=== PATIENT | male | born 1945 | race Caucasian/White ===

== ENCOUNTER 2019-11-29 07:40 | Inpatient (IN) | payer OTHER ==
[2019-11-15 13:31] LABS: URINE BILIRUBIN NEGATIVE (Negative); URINE BLOOD NEGATIVE (Negative); URINE CLARITY CLEAR; URINE COLOR YELLOW; URINE GLUCOSE-RANDOM* NEGATIVE (Negative); URINE KETONES NEGATIVE (Negative); URINE LEUKOCYTES-REFLEX NEGATIVE (Negative); URINE NITRITE-REFLEX NEGATIVE (Negative); URINE PROTEIN (DIPSTICK) NEGATIVE (Negative); URINE SPECIFIC GRAVITY 1.025 (1.005-1.035); URINE UROBILINOGEN 0.2 E.U./dl (0.2-1.0)
[2019-11-15 13:45] LABS: PROTIME 10.7 Seconds (9.3-11.4)
--- NOTE | 2019-11-15 13:51 | EKG ---
[address] [place] [address] ELECTROCARDIOGRAM REPORT Name: SHAHIDA MERCHANT Room #: [facility]#: [id number] Admission: Attend Phys: Everette Garcia MD Discharge: Date of : 49 Report #: [id number] THIS REPORT FOR: //name// [facility] Test Date: 2019-11-15 Test Time: 13:25:41 Pat Name: SHAHIDA MERCHANT Department: Room: Gender: It Senior Analyst: VALERIE WESTBROOK : 1945 Requested By: Everette Garcia Order Number: [id number] MD: Cirilo Jo Measurements Intervals [place] Rate: 68 P: [place]: QRS: -57 QRSD: 115 T: 125 QT: 409 QTc: 436 Interpretive Statements Afib/flut and V-paced complexes No further rhythm analysis attempted due to paced rhythm Incomplete left bundle branch block Anterior Q waves, possibly due to ILBBB No previous ECG available for comparison Electronically Signed On 11-15-2019 13:50:42 COUNSELOR MANAGER by Cirilo Jo [email or web address] <ELECTRONICALLY SIGNED> By: Cirilo Jo MD 11/15/19 1350 1325 1325 Cirilo Jo MD /EPI
[2019-11-15 13:54] LABS: ALBUMIN 3.4 g/dL (3.4-5.0); CALCIUM 9.2 mg/dL (8.5-10.1); CREATININE 1.6 mg/dL (0.7-1.3)
[2019-11-15 15:42] LABS: HEMATOCRIT 39.3 % (42.0-52.0); HEMOGLOBIN 12.5 gm/dL (14.0-18.0); MCH 29.8 pg (26.0-34.0); MCHC 31.9 g/dL (28.0-37.0); MCV 93.3 fL (80.0-100.0); RBC 4.21 mil/uL (4.50-6.00); RDW 16.2 % (10.5-14.5); WBC 9.3 thou/uL (4.0-11.0)
[2019-11-15 23:06] LABS: GLYCOHEMOGLOBIN (HGB A1C) 7.2 % (4.8-5.6)
[~2019-11-29] VITALS: Ht 172.7 cm; Wt 122.9 kg
[~2019-11-29 07:40] MED LIST: ALLOPURINOL 10100 M3 PO; ANTACID650 MG PO; ASPIR-LOW81 MG PO; CALCITRIOL0.25 MCG PO; COREG6.25 MG PO; DIVALPROEX SOD250 M3 PO; FERROUS GLUCON324 M2 PO; FOLIC ACID1 MG PO; KEFLEX500 M2 PO; LIPITOR20 MG PO; ORENCIA125 MG/1 M SUBQ; POTASSIUM20 PO; PROAIR HFA8.5 GM INH; RENAL MULTIVITAMIN PO; SERTRALINE HCL100 MG PO; TRAZODONE HCL100 MG PO; TYLENOL WITH CO1 TA1 PO; VITAMIN B-121000 MC2 PO; VITAMIN D3400 UNIT PO
[2019-11-29 11:40] VITALS: BP 172/77
[2019-11-29 15:40] VITALS: BP 150/91
--- NOTE | 2019-11-29 17:32 | NUR ---
ASSUMED CARE OF THE PT AT 1545. PT HAS CELESTE DRESSING, POLAR PACK AND MAGDI HOSE IN PLACE, SCD'S ON R LEG, L LEG HAS EDEMA AND POSSIBLE CELLULITIS. PT IS ON CONTACT PRECAUTIONS FOR HX OF MRSA. BS IN PACU WAS 220, BS BEFORE DINNER WAS 196, AWAITING DOCTOR TO FOLLOWUP ON PROTOCOL. L HAND IV INTACT. SX DRESSING INTACT WITH NO DRAINAGE. PAIN CONTROLLED BY PAIN MEDS, SEE EMAR. PEDAL PULSES ARE STRONG AND NEURO IS NUMBNESS IN FEET DUE TO BLOCK FROM SX, PT ABLE TO MOVE TOES AND CAP REFILL LESS THAN 3. PT IS A FALL RISK AND FALL PRECAUTIONS ARE IN PLACE, BED IN THE LOWEST POSITION AND CALL LIGHT IS WITHIN REACH. WILL CONTINUE TO MONITOR THE PT.
[2019-11-29 19:49] VITALS: BP 148/70
[2019-11-30 04:15] VITALS: BP 115/51
--- NOTE | 2019-11-30 04:50 | NUR ---
1910 ASSUMED CARE OF PT AFTER BEDSIDE REPORT, ASSESSMENT COMPLETED SEE ASSESSMENT. PHIL WRAP TO L KNEE WITH POLAR CARE IN PLACE, CLIENT WITH COMPLAINTS OF SLIGHT PAIN, SMALLER DRESSING WITH SEROUS DRAINAGE BELOW HPIL WRAP TO L KNEE. CLIENT WITH 3+ PITTING EDEMA AND REDNESS TO LLE, CLIENT STATES THIS IS NORMAL FOR HIM. CLIENT IS CHANGING POSITIONS ON HIS OWN AND IS COUGHING A DEEP BREATHING, VOIDING WITHOUT DIFFICULTY, IV INFUSING WITH NO S/S OF INFILTRATION OR PHLEBITIS. 2330 CONTACTED ONUR CINETECHNICIAN SECONDARY TO ELEVATED CBG AND D5 1/2NS ORDERED, ORDER CHANGET TO NS 1000ML X 1. CLIENT RESTING QUIETLY WITH NO COMPLAINTS OF PAIN OR DISCOMFORT.
[2019-11-30 07:13] LABS: ABSOLUTE NEUTROPHILS 7.7 thou/uL (1.4-8.2); BASOPHILS 0.3 % (0.0-2.0); HEMATOCRIT 36.9 % (42.0-52.0); HEMOGLOBIN 11.5 gm/dL (14.0-18.0); LYMPHOCYTES 26.5 % (24.0-44.0); MCH 29.1 pg (26.0-34.0); MCHC 31.2 g/dL (28.0-37.0); MCV 93.3 fL (80.0-100.0); MONOCYTES 4.6 % (1.0-8.0); PLATELET COUNT 181 thou/uL (150-400); POLYS 68.6 % (36.0-66.0); RBC 3.95 mil/uL (4.50-6.00); RDW 15.9 % (10.5-14.5); WBC 11.3 thou/uL (4.0-11.0)
[2019-11-30 07:22] LABS: CALCIUM 8.3 mg/dL (8.5-10.1); CREATININE 1.9 mg/dL (0.7-1.3); MAGNESIUM 1.7 mg/dL (1.8-2.4); POTASSIUM 5.1 mmol/L (3.5-5.1)
[2019-11-30 22:18] VITALS: BP 120/66
--- NOTE | 2019-12-01 02:40 | NUR ---
LEFT KNEE WITH CELESTE DRSG WELL POLAR SONJA-TEDS IN PLACE. SOME BLOOD NOTED ON THE DRSG TO L KNEE, BUT IS OLD, NOT GETTING ANY WORSE.PAIN WELL MANAGED WITH PO HYDROCODONE.BLE WITH TIGHT EDEMA SECONDARY TO LYMPHEDEMA. PT USING CPAP WITH 3L/NC. NEUROVASCULAR CHECK INTACT TO LLE. PT USING URINAL.AFEBRILE. WILL CONTINUE WITH POC TILL EOS.
--- NOTE | 2019-12-01 05:28 | NUR ---
PT HAD A LEFT TKA DONE ON 11/29. 2 POST OP D5 1/2NS BAGS ORDERED PER PROTOCOL. 2ND BAG SWITCHED TO NS @ 100/HR( I BAG ONLY) DUE TO ELEVATED BLOOD GLUCOSE. (PER NURSES NOTES)-ORDERS RECD FROM ONUR ORTIZ TO GLORIA ROSSI RN AT 2330 HRS ON POST OP DAY ZERO. BASED ON THIS INFO, THE NS FLUIDS HAVE BEEN DC'D THIS SHIFT.
[2019-12-01 05:42] LABS: HEMATOCRIT 31.1 % (42.0-52.0); MCH 29.9 pg (26.0-34.0); MCHC 32.2 g/dL (28.0-37.0); MCV 92.8 fL (80.0-100.0); RBC 3.36 mil/uL (4.50-6.00); RDW 15.7 % (10.5-14.5); WBC 9.1 thou/uL (4.0-11.0)
[2019-12-01 08:14] VITALS: BP 107/51
[2019-12-01 13:45] VITALS: BP 17/51
--- NOTE | 2019-12-01 13:46 | NUR ---
Case opened to follow for dc planning. Track Walker visited with the pt and his at bedside. They are anticipating dc to home later today with plans for outpt therapy at [facility] [place]. [facility] has [facility] o2 and [facility]. He was seen and cleared by therapy for dc home. No cm interventions indicated. Care team updated. Will remain available should dc needs arise.
--- NOTE | 2019-12-01 14:14 | O ---
[facility] [place] [address] OPERATIVE REPORT Name: SHAHIDA MERCHANT Room #: 448-P [facility] IN M.R.#: [id number] Admission: 11/29/19 Attend Phys: Everette Garcia MD Discharge: Date of : 49 Report #: [id number] THIS REPORT FOR: //name// CC: FAM unknown Ezequiel Dietrich Everette Garcia DATE OF SERVICE: 11/29/2019 PREOPERATIVE DIAGNOSIS: Left knee osteoarthritis. POSTOPERATIVE DIAGNOSIS: Left knee osteoarthritis. PROCEDURE: Left total knee arthroplasty using Navio robotic assistance. SURGEON: Everette Garcia MD. IP LITIGATION ASSOCIATE: Joya Robbins PA-C. INDICATIONS FOR IP LITIGATION ASSOCIATE: Throughout the case, extensive retraction and manipulation of the knee was required. This was afforded to me by my gallery assistant. ANESTHESIA: LMA with an adductor canal block. IMPLANTS: [employer] size 8 Legion cobalt chrome posterior stabilized femur, size 6 tibia, size 9 highly constrained polyethylene and size 38 patella. TOURNIQUET TIME: 63 minutes. ESTIMATED BLOOD LOSS: 25 mL. COMPLICATIONS: None. SPECIMENS: None. CONDITION UPON LEAVING THE OPERATING ROOM: Stable. INDICATIONS FOR PROCEDURE: The patient is a 74-year-old gentleman with severe left knee osteoarthritis. He had failed conservative measures for this and after discussion with him, he elected for left total knee arthroplasty. DESCRIPTION OF PROCEDURE: Risks, benefits, alternatives, complications were discussed in detail with the patient including, but not limited to risk of anesthesia, risk of damage to nerves, arteries, blood vessels, risk for infection, bleeding, risk for continued knee pain, need for reoperation. Informed consent was obtained from the patient. Left knee was appropriately [address] [address] OPERATIVE REPORT Name: SHAHIDA MERCHANT Natanael Room #: 448-P [facility] IN M.R.#: [id number] Admission: 11/29/19 Attend Phys: Everette Garcia MD Discharge: Date of : 49 Report #: [id number] marked in the preoperative holding area. Adductor canal block was placed by Anesthesia. IV Ancef was given for preoperative antibiotics. He was brought to the operating room and placed in supine position on operating room table. LMA anesthesia was induced without complication. Tourniquet was placed on the left thigh. Left lower extremity was prepped and draped in normal sterile fashion. Timeout was performed properly identifying the patient and procedure as well as the instrumentation and implants. All in the operating room were in agreement. Left lower extremity was exsanguinated, tourniquet was inflated. Tourniquet time was 63 minutes. Standard midline approach to the knee was made with 10 blade through the skin. Dissection was taken down sharply to the fascia, deep flaps were developed medially and laterally. Fresh 10-blade was used to make a medial parapatellar arthrotomy and the knee was inspected. There was severe tricompartmental osteoarthritic change. It was decided to proceed with total knee arthroplasty. Reference pins were placed in the femur and the tibia. The knee was then digitally mapped using the [employer] robotic system. We sized the size 8 femur and a size 6 tibia with an 11 spacer. After acceptance of the intraoperative plan, the distal femoral cut was made with a Navio bur. The 4-in-1 size 8 femoral cutting block was pinned in place and anterior, posterior and chamfer cuts were made. Attention was then turned to the tibia. The remainder of the menisci removed with Bovie cautery. Tibial resection guide was pinned in place using the Navio for placement and ___. After this, flexion and extension gaps were checked and found to be somewhat loose medially in extension and it was felt we could make up this with a constrained implant. After this, tibia was sized and found to be a size 6 and a size 6 tibial trial was placed, pinned and punched. A size 8 femoral trial was placed and the box cut was made. This was then trialed with a size 9 constrained polyethylene. Knee was taken through range of motion, found to be stable, found to have good balance in flexion and extension both medially and laterally. A 9 mm was resected from the posterior surface of the patella and a size 38 patellar trial button was placed. Knee was taken through range of motion, found to be stable, found to have good balance in flexion and extension both medially and laterally. After this, trial components were removed. Bony ends were thoroughly irrigated with normal saline. Final size 6 tibia, size 8 cobalt chrome Legion posterior stabilized femur and a size 38 patella were cemented in place using standard cementation techniques. While the cement cured, a periarticular injection consisting of morphine, ropivacaine, epinephrine and Toradol was placed around the knee joint capsule. After the cement cured, the tourniquet was deflated. Hemostasis was obtained with Bovie cautery. Final size 9 constrained polyethylene was placed. A gram of vancomycin was placed deep in the joint. Fascia was closed with 0 Vicryl, skin was closed with 2-0 Vicryl and skin staple and a CELESTE dressing was applied. The patient tolerated this procedure well and went to recovery room under care of anesthesia postoperatively. <ELECTRONICALLY SIGNED> By: Everette Garcia MD 12/01/19 1414 1629 1708 Everette Garcia MD /peace
[2019-12-01] MEDS ORDERED: NEURONTIN 300300 M1 PO (14:15)
[2019-12-01] MEDS ORDERED: ELIQUIS2.5 MG PO (14:15)
[2019-12-01 14:36] VITALS: BP 17/51
== END 2019-12-01 17:49 | disposition home or self-care (01) | DRG 470 ==
LOC: EDSTATUS 07:40 → PRE 07:43 → 4S 09:40 → TBA 09:40 → OR 11:11 → PRE 12:21 → OR 12:27 → 4S 16:25 → OR 16:35 → 4S 12-01 17:49
PROVIDERS: Nurse Practitioner; ADMIT Orthopaedic Surgery
DX: M17.12 Unilateral primary osteoarthritis, left knee (principal); Z68.41 Body mass index [BMI] 40.0-44.9, adult; G93.49 Other encephalopathy; E66.01 Morbid (severe) obesity due to excess calories; E78.5 Hyperlipidemia, unspecified; K21.9 Gastro-esophageal reflux disease without esophagitis; G47.00 Insomnia, unspecified; F32.9 Major depressive disorder, single episode, unspecified; M10.9 Gout, unspecified; I10 Essential (primary) hypertension; F41.9 Anxiety disorder, unspecified; J43.9 Emphysema, unspecified; I73.9 Peripheral vascular disease, unspecified; M06.9 Rheumatoid arthritis, unspecified; F43.10 Post-traumatic stress disorder, unspecified; Z96.89 Presence of other specified functional implants; I89.0 Lymphedema, not elsewhere classified; Z87.891 Personal history of nicotine dependence; Z99.81 Dependence on supplemental oxygen; Z86.718 Personal history of other venous thrombosis and embolism; Z90.49 Acquired absence of other specified parts of digestive tract; Z98.42 Cataract extraction status, left eye; Z98.41 Cataract extraction status, right eye; Z83.3 Family history of diabetes mellitus; Z80.9 Family history of malignant neoplasm, unspecified; Z98.84 Bariatric surgery status; Z79.82 Long term (current) use of aspirin; Z79.899 Other long term (current) drug therapy; Z88.8 Allergy status to other drugs, medicaments and biological substances
CPT/HCPCS: 10102; 50010; 50101; 50415; 50954; 51130; 51225; 51320; 51412; 52001; 52282; 53000; 53078; 53364; 56527; 56528; 57095; 57103; 57110; 57127; 57180; 62110; 62900; 64039; 64043; 70005